=== PATIENT | female | born 1980 | race Caucasian/White ===

== ENCOUNTER 2019-05-09 21:21 | Emergency (ER) | payer MEDICAID ==
[~2019-05-09] VITALS: Ht 167.6 cm; Wt 56.7 kg
[~2019-05-09 21:21] MED LIST: PREN-96 PO
[2019-05-09 22:34] LABS: Basophils # (auto) 0.1 uL; Eosinophils # (auto) 0.4 uL
[2019-05-09 22:36] LABS: Basophils % (auto) 1.2 % (0.0-2.0); Eosinophils % (auto) 5.4 % (0.0-7.0); Hematocrit 20.7 % (36.0-46.0); Lymphocytes # (auto) 2.2 uL; Lymphocytes % (auto) 28.7 % (10.0-50.0); Mean Corpuscular Hemoglobin 26.7 pg (28.0-32.0); Mean Corpuscular Hgb Conc. 31.5 g/dL (32.0-36.0); Mean Corpuscular Volume 84.6 fL (80.0-100.0); Monocytes # (auto) 0.5 uL; Monocytes % (auto) 6.1 % (0.0-12.0); Neutrophils # (auto) 4.5 uL; Neutrophils % (auto) 58.6 % (37.0-80.0); Nucleated Red Blood Cells % 0.2 %; Platelet Count (auto) 385 10^3/uL (140-450); Red Blood Cells 2.44 10^6/uL (4.0-5.20); Red Cell Distribution Width 18.5 % (11.8-14.3); White Blood Cell 7.6 10^3/uL (4.4-10.8)
[2019-05-09 22:48] LABS: Hemoglobin 6.5 g/dL (12.2-16.2)
[2019-05-09 22:54] LABS: Albumin 3.4 g/dL (3.4-5.0); Calcium 8.6 mg/dL (8.5-10.1); Potassium 3.9 mmol/L (3.5-5.1)
[2019-05-09 22:57] LABS: Bilirubin, Total 0.1 mg/dL (0.2-1.0); Total Protein 7.4 g/dL (6.4-8.2)
[2019-05-09 23:52] LABS: Urine Bacteria MANY /hpf (None Seen); Urine Blood 3+ /uL (Negative); Urine Specific Gravity 1.023 (1.001-1.035); Urine WBC 66 /hpf (0 - 5)
[2019-05-10] VITALS (9 sets, daily range): BP systolic 112–128; BP diastolic 64–90
[2019-05-10] MEDS ORDERED: SODIUM CHLORIDE 0.9% 1,000 ML IV ONE (01:00)
[2019-05-10 02:13] LABS: Hematocrit 17.8 % (36.0-46.0)
[2019-05-10 02:19] LABS: Hemoglobin 5.6 g/dL (12.2-16.2)
[2019-05-10] MEDS ORDERED: LACTATED RINGER'S 1,000 ML IV ONE (02:30)
[2019-05-10] MEDS ORDERED: cefTRIAXone 1GM/50ML D5W 50 ML IV ONE (05:45)
[2019-05-10] MEDS ORDERED: ONDANSETRON ODT 4 MG TAB PO ONE (06:15)
[2019-05-10] MEDS ORDERED: FERROUS SULFATE 325 MG TAB PO ONE (07:45)
[2019-05-10 07:51] LABS: Hemoglobin 7.7 g/dL (12.2-16.2)
[2019-05-10 07:53] LABS: Hematocrit 23.8 % (36.0-46.0)
== END 2019-05-10 10:30 | disposition home or self-care (01) ==
LOC: ER 21:21
DX: N93.8 Other specified abnormal uterine and vaginal bleeding (principal); N39.0 Urinary tract infection, site not specified; Z88.8 Allergy status to other drugs, medicaments and biological substances
CPT/HCPCS: 36415; 36430; 76856; 80053; 81001; 81025; 85014; 85018; 85025; 86850; 86900; 86901; 86920; 87086; 96365; 99285; J0696; J7030; J7040; P9016; Q0162